=== PATIENT | male | born 1985 | race African-American/Black ===

== ENCOUNTER 2017-10-30 13:41 | Emergency (ER) | payer SELFPAY ==
[~2017-10-30] VITALS: Ht 188 cm; Wt 76.2 kg
[2017-10-30] MEDS ORDERED: NKM (13:48)
[2017-10-30 13:51] VITALS: BP 130/83
[2017-10-30] MEDS ORDERED: Tylenol #3 tab (300mg/30mg) ORAL ONE (14:00)
[2017-10-30] MEDS ORDERED: Lidocaine 1% MPF 10mg/ml 5ml INJ ONE (14:00)
[2017-10-30] MEDS ORDERED: Azithromycin 250mg tab ORAL ONE (14:00)
[2017-10-30] MEDS ORDERED: Azithromycin 250mg tab ONE (14:09)
[2017-10-30] MEDS ORDERED: IBUPROFEN600 MG ORAL (14:12)
--- NOTE | 2017-10-30 14:12 | Emergency Room Report ---
History of Present Illness General Chief Complaint: Toothache Source: Patient Present Illness HPI 32-year-old male patient presents to ER with multiple complaints. Patient complaining of tooth pain for the past one day. Reports that he attempted to remove this tooth at home. Reports tenderness to palpation. Requesting pain medication, requesting Acton pain medication. States that he attempted a dentist but they were all closed in 2 expensive for the ones that are open on the weekend. States he'll followup with dentist tomorrow. Also complaining of possible STI infection. States that he had sexual relationship with a woman that was not his girlfriend last night. States that he feels itchy. Denies penile discharge, dysuria, hematuria, penile rash, penile lesions. Denies testicular pain or swelling. Denies other acute symptoms. Denies fever, chest pain, shortness of breath, intractable vomiting, abdominal pain, flank pain. Allergies: Coded Allergies: No Known Allergies (Unverified , 10/30/17) Patient History Past Medical History: see triage record Reviewed Nursing Documentation: PMH: Agreed; PSxH: Agreed Nursing Documentation-PMH Past Medical History: No Stated History Review of Systems All Other Systems: negative except mentioned in HPI Physical Exam Vital Signs Date Time Temp Pulse Resp B/P (MAP) Pulse Ox O2 Delivery O2 Flow Rate FiO2 10/30/17 13:44 97.7 68 16 130/83 95 Room Air 97.7 Sp02 EP Interpretation: reviewed, normal General Appearance: well appearing, no apparent distress, alert, GCS 15, non- toxic Head: normocephalic, atraumatic Eyes: bilateral eye normal inspection, bilateral eye PERRL ENT: hearing grossly normal, normal pharynx, no angioedema, normal voice, uvula midline, moist mucus membranes, other - multiple dental caries, tenderness to palpation of right upper gum tooth, no erythema or edema, no signs of infection, no fluctuance or induration, no bleeding or active drainage Neck: full range of motion Respiratory: lungs clear, normal breath sounds, no rhonchi, no respiratory distress, no accessory muscle use, no wheezing, speaking full sentences Cardiovascular #1: regular rate, rhythm, no edema Genitourinary: no CVA tenderness, deferred Musculoskeletal: back normal, digits/nails normal, gait/station normal, normal range of motion, non-tender Neurologic: alert, oriented x3, responsive, motor strength/tone normal, sensory intact Skin: no rash Lymphatic: no adenopathy Medical Decision Making PA Attestation Dr. Soares is my supervising Physician whom patient management has been discussed with. Diagnostic Impression: Primary Impression: Toothache Additional Impression: Encounter for screening examination for sexually transmitted disease ER Course Pt. presents to the ED c/o dental infection and possible STI exposure. Ddx considered but are not limited to cellulitis, abscess, dental caries, gingivitis. Ddx considered but are not limited to gonorrhea, chalmydia, cystitis, pylonephritis. Does not require imaging at this time. Vital signs: are WNL, pt. is afebrile ED INTERVENTIONS: CURES reports, no pain medication refills this month. Tylenol #3 for pain. Reports was driven to ER by gf, will not be driving home. Nontoxic appearing, speaking full sentences, no active draining, mild edema, no trismus or vision changes. multiple dental caries noted. no erythema, edema, does not come to a point, no signs of infection, does not require antibiotic treatment at this time. Will provide Rx for Ibuprofen at discharge. Followup with dentist in 1-2 days. do not attempt to remove tooth at home. Ordered Azithromycin and Rocephin. informed treating for gonorrhea and chlamydia , needs further evaluation and treatment, needs testing for syphilis and HIV and other communicable diseases. Wear condoms during sex. Avoid sexually activity for 2 weeks. Inform sexual partners of need for testing and evaluation. Followup with STI clinic and/or PCP for further testing and treatment. Drink plenty of fluids. ER precautions given. On repeat examination patient requesting Acton prescription again, informed patient would not give him a opioid prescription at discharge. Discuss further pain treatment with dentist and PCP. DISCHARGE: Rx provided for Ibuprofen Advised to use safe sex practices including but not limited to use of condoms. Instructed patient to follow up with STI clinic and/or PCP for future STI treatment and prevention. Instructed patient to inform partner of need for treatment to prevent future infection. Patient is resting comfortably, in no acute distress, nontoxic appearing, talking without difficulty. Patient to take medications as instructed Will provide with patient care instructions and any necessary prescriptions. Care plan and follow-up instructions provided. Patient instructed to follow-up with primary care provider in 3 - 5 days. Patient questions asked and answered. Patient reports understanding and agreement to treatment plan. ER precautions given. Patient instructed to return to ER immediately for any new or worsening of symptoms including but not limited to increasing SOB, persistent fever, red streaking, intractable vomiting. - Please note that this Emergency Department Report was dictated using [employer] inspector technology software, occasionally this can lead to erroneous entry secondary to interpretation by the dictation equipment. Last Vital Signs Date Time Temp Pulse Resp B/P (MAP) Pulse Ox O2 Delivery O2 Flow Rate FiO2 10/30/17 13:51 97.7 78 16 130/83 95 Room Air 97.7 Disposition: HOME, SELF-CARE Condition: Stable Scripts Ibuprofen* (MOTRIN*) 600 Mg Tablet 600 MG ORAL Q8H PRN for For Pain, #30 TAB 0 Refills Prov: Jase Martinez 10/30/17 Patient Instructions: Dental Pain, Sexually Transmitted Disease, [id number] Additional Instructions: Followup with primary care provider in 3 -5 days. Take medications as directed. Patient questions asked and answered. ER precautions given, patient instructed to return to ER immediately for any new or worsening of symptoms. Wear condoms during sex. Avoid sexually activity for 2 weeks. Inform sexual partners of need for testing and evaluation. Followup with STI clinic and/or PCP for further testing and treatment. Drink plenty of fluids. Followup with dentist. Do not attempt to remove teeth on your own. Jase Martinez Oct 30, 2017 14:12
[2017-10-30 14:20] VITALS: BP 130/83
== END 2017-10-30 14:22 | disposition home or self-care (01) ==
LOC: EMR 14:04
DX: K08.89 Other specified disorders of teeth and supporting structures (principal); Z20.2 Contact with and (suspected) exposure to infections with a predominantly sexual mode of transmission; K02.9 Dental caries, unspecified
CPT/HCPCS: 96372; 99283; J0696